=== PATIENT | male | born 1950 | race Caucasian/White ===

== ENCOUNTER → 2019-02-24 | Outpatient (CLI) | payer BC, OTHER ==
[~2019-02-24] MED LIST: B-COMPLEX PLUS1 EACH PO; BACTRIM DS TAB1 EACH PO; C-1000 WITH R1000 MG PO; FISH OIL 1,2001 EAC4 PO; LAMICTAL PO; LAMOTRIGINE200 MG PO; LEVAQUIN 500 M500 M2 PO; MULTIPLE VITAM1 EAC3 PO; MULTIVITAMINS PO; NORCO 5-325 TA1 EACH PO; PERCOCET 7.5-31 EACH PO; POTASSIUM20; POTASSIUM99 M1 PO; SYNTHROID PO; SYNTHROID50 MCG PO; TAMSULOSIN HCL0.4 M1 PO; TAMSULOSIN HCL0.4 MG PO; TORADOL 10 MG T10 MG PO; VITAMIN B; VITAMIN C100 M1 PO; VITAMIN E400 UNI2 PO
--- NOTE | 2019-02-24 12:06 | 2DMMODE ---
[facility] [address] [place] [address] 2 D/M-MODE ECHOCARDIOGRAM Name: FRANCO ALEJANDRA Room #: [facility]#: [id number] ������������� Admission: 02/24/19 ������������� Attend Phys: Charles Mackey Discharge: ��� ������������� ��� Date of : 52 Date of Service: 02/24/19 1206 �� Report #: [id number] �������� ��������������������������������������������[id number] THIS REPORT FOR: //name// APPROVED REPORT Study performed: 02/24/2019 11:03:52 EXAM: Comprehensive 2D, Doppler, and color-flow Echocardiogram Patient Location: Out-Patient Status: routine BSA: 1.98 HR: 80 bpm BP: 127/69 mmHg Rhythm: NSR Other Information Study Quality: Good Indications PACs. 2D Dimensions RVDd: 39.11 mm IVSd: 11.94 (7-11mm) LVDd: 47.16 mm PWd: 9.23 (7-11mm) Ascending Ao: 31.98 (22-36mm) LVDs: 29.36 (25-40mm) Aortic Root: 34.76 mm Volumes Left Atrial Volume (Systole) Single Plane 4CH: 48.41 mL Single Plane 2CH: 43.30 mL Aortic Valve AoV Peak Julio C.: 1.27 m/s AO Peak Gr.: 6.45 mmHg LVOT Max P.44 mmHg LVOT Max V: 1.17 m/s Mitral Valve E/A Ratio: 0.9 MV Decel. Time: 297.86 ms MV E Max Julio C.: 0.64 m/s MV A Julio C.: 0.75 m/s MV PHT: 86.38 ms [facility] [address] [place] [address] 2 D/M-MODE ECHOCARDIOGRAM Name: FRANCO ALEJANDRA II Room #: [facility]#: [id number] ������������� Admission: 02/24/19 ������������� Attend Phys: Charles Mackey Discharge: ��� ������������� ��� Date of : 52 Date of Service: 02/24/19 1206 �� Report #: [id number] �������� ��������������������������������������������[id number] IVRT: 110.73 ms Pulmonary Valve PV Peak Julio C.: 1.02 m/s PV Peak Gr.: 4.15 mmHg Pulmonary Vein P Vein S: 0.56 m/s P Vein D: 0.30 m/s P Vein S/D Ratio: 1.87 Tricuspid Valve TR Peak Julio C.: 2.35 m/s RAP Estimate: 25.00 mmHg TR Peak Gr.: 22.03 mmHg Left Ventricle The left ventricle is normal size. There is normal LV segmental wall motion. Mild basal septal hypertrophy is present. Left ventricular systolic function is normal. LVEF is 60-65%. Mild diastolic dysfunction is present (impaired relaxation pattern). Right Ventricle The right ventricle is normal size. The right ventricular systolic function is normal. Atria The left atrium size is normal. The right atrium size is normal. Aortic Valve The aortic valve is normal in structure. No aortic regurgitation is present. There is no aortic valvular stenosis. Mitral Valve The mitral valve is normal in structure. There is no mitral valve regurgitation noted. Tricuspid Valve The tricuspid valve is normal in structure. Estimated PAP 27mmHg Pulmonic Valve The pulmonary valve is normal in structure. Trace pulmonic regurgitation. Trace pulmonic regurgitation. Great Vessels The ascending aorta is normal in size. [facility] [employer] [place] [address] 2 D/M-MODE ECHOCARDIOGRAM Name: FRANCO ALEJANDRA [facility] [id number] ������������� Admission: 02/24/19 ������������� Attend Phys: Charles Mackey Discharge: ��� ������������� ��� Date of : 52 Date of Service: 02/24/191205 �� Report #: [id number] �������� ��������������������������������������������[id number] Pericardium There is no pericardial effusion. <Conclusion> Left ventricular systolic function is normal. There is normal LV segmental wall motion. LVEF is 60-65%. Mild diastolic dysfunction The aortic valve is normal in structure. No aortic regurgitation or stenosis The mitral valve is normal in structure. No mitral valve regurgitation. The tricuspid valve is normal in structure. Estimated pulmonary artery pressure of 27mmHg There is no pericardial effusion. ��������������������������������������������� <ELECTRONICALLY SIGNED> ���������������������������������������� By: Ashu Piper MD, [facility] ��������������������������������������������� 02/24/191205 1206 05 Ashu Piper MD, FACC /INF
== END ==
LOC: NUC 08:02
DX: I49.1 Atrial premature depolarization (principal); R06.00 Dyspnea, unspecified; E78.5 Hyperlipidemia, unspecified; E11.9 Type 2 diabetes mellitus without complications

== ENCOUNTER 2019-11-04 06:32 | Observation (INO) | payer OTHER ==
[~2019-11-04] VITALS: Ht 165.1 cm; Wt 82.6 kg
[~2019-11-04 06:32] MED LIST changes: +LAMICTAL25 MG PO; -LAMOTRIGINE200 MG PO; -SYNTHROID50 MCG PO; +SYNTHROID75 MCG PO
[2019-11-04 07:15] VITALS: BP 111/55
[2019-11-04 07:25] LABS: ABSOLUTE NEUTROPHILS 5.8 thou/uL (1.4-8.2); BASOPHILS 0.5 % (0.0-2.0); EOSINOPHILS 0.4 % (0.0-3.0); HEMATOCRIT 47.3 % (42.0-52.0); HEMOGLOBIN 15.7 gm/dL (14.0-18.0); LYMPHOCYTES 11.7 % (24.0-44.0); MCH 29.4 pg (26.0-34.0); MCHC 33.2 g/dL (28.0-37.0); MCV 88.5 fL (80.0-100.0); MONOCYTES 10.4 % (1.0-8.0); PLATELET COUNT 244 thou/uL (150-400); RBC 5.34 mil/uL (4.50-6.00); RDW 13.7 % (10.5-14.5); WBC 7.6 thou/uL (4.0-11.0)
[2019-11-04] MEDS ORDERED: JARDIANCE10 MG PO (07:28)
[2019-11-04] MEDS ORDERED: ALPHAGAN P5 ML OPHTHALMIC (07:28)
[2019-11-04] MEDS ORDERED: NEURONTIN600 MG PO (07:29)
[2019-11-04 07:30] LABS: CALCIUM 9.3 mg/dL (8.5-10.1); CREATININE 0.8 mg/dL (0.7-1.3); POTASSIUM 4.1 mmol/L (3.5-5.1)
[2019-11-04] MEDS ORDERED: PRILOSEC OTC20 MG PO (07:30)
[2019-11-04] MEDS ORDERED: MOBIC15 MG PO (07:30)
[2019-11-04] MEDS ORDERED: METFORMIN HCL500 M1 PO (07:30)
[2019-11-04] MEDS ORDERED: VITAMIN B-1100 M2 PO (07:31)
[2019-11-04] MEDS ORDERED: ZOCOR 20 MG TAB20 M1 PO (07:31)
[2019-11-04] MEDS ORDERED: THERA-M1 EAC1 PO (07:31)
[2019-11-04 07:36] LABS: ALBUMIN 3.7 g/dL (3.4-5.0); TOTAL BILIRUBIN 0.5 mg/dL (<0.1-1.0); TOTAL PROTEIN 6.8 g/dL (6.4-8.2)
[2019-11-04 08:13] LABS: PROTIME 10.7 Seconds (9.3-11.4)
[2019-11-04 12:50] VITALS: BP 130/77
[2019-11-04] MEDS ORDERED: METFORMIN HCL500 MG PO (14:58)
[2019-11-04 16:40] VITALS: BP 108/54
[2019-11-04 19:58] VITALS: BP 116/64
[2019-11-05] VITALS: BP 152/64
[2019-11-05 04:45] VITALS: BP 124/65
[2019-11-05 08:10] VITALS: BP 118/67
[2019-11-05] MEDS ORDERED: DILT-XR120 MG PO ×2 (08:35→08:54)
[2019-11-05 10:32] VITALS: BP 118/67
[2019-11-05 11:30] VITALS: BP 127/79
--- NOTE | 2019-11-06 11:06 | P ---
[facility] [place] [address] PROCEDURE REPORT Name: FRANCO ALEJANDRA Room #: 208-P [facility] Jayden M.R.#: [id number] Admission: 11/04/19 Attend Phys: Charles Mackey MD Discharge: 11/05/19 Date of : 52 Report #: [id number] THIS REPORT FOR: cc: Juhi Groves MD, Lisa A. MD Couchonnal, Luis F. MD ~ CC: Juhi Mackey SUPRAVENTRICULAR TACHYCARDIA ABLATION PREOPERATIVE DIAGNOSIS: Supraventricular tachycardia. POSTOPERATIVE DIAGNOSIS: Atrial tachycardia arising from the coronary sinus ostium. HISTORY: The patient is a 69-year-old male with history of diabetes as well as symptomatic premature atrial contractions. He is typically in sinus rhythm with bigeminal PACs. He is here for EP study and ablation. PROCEDURES PERFORMED: 1. SVT ablation, CPT code 20284. 2. EP with left atrial pacing and recording, CPT code 69226. 3. Program stimulation pacing after IV drug infusion, CPT code 93003. 4. 3D mapping, CPT code 57608. ANESTHESIA: The patient underwent MAC anesthesia with no anesthesia related complications. DESCRIPTION OF PROCEDURE: The patient underwent informed consent. We discussed the details of the procedure including the risks, which include but not limited to bleeding, vascular damage, stroke, NV as well as damage to the kalispel conduction system requiring permanent pacemaker. He understood these risks and is willing to proceed. The patient was brought to the EP laboratory in a fasting and sedated state and prepped and draped in a sterile fashion. Of note, the patient was not in his typical atrial bigeminy. He was in sinus rhythm. I then obtained access to the right femoral vein x 4, placing an 8, two 6 and a 7-Welsh short sheath using the modified Seldinger technique. Next, under fluoroscopy, I placed 3 quadripolar catheters at the HRA, His and RV positions and a decapolar catheter into the coronary sinus for left atrial pacing and recording. Next, a basic EP study was performed. At baseline, the patient was in sinus rhythm with sinus cycle length of 730 milliseconds, NC interval 165 milliseconds, QRS duration 80 milliseconds, QT interval 360 milliseconds, AH interval 95 milliseconds, and HV interval of 40 milliseconds. Atrial burst pacing was performed and AV block was noted at 330 milliseconds. Atrial ERP was noted at 250 milliseconds at a [address] [facility] [address] [address] PROCEDURE REPORT Name: FRANCO ALEJANDRA Room #: 208-P [facility].Dinorah#: [id number] Admission: 11/04/19 Attend Phys: Charles Mackey MD Discharge: 11/05/19 Date of : 52 Report #: [id number] cycle length. VA block was noted at 410 milliseconds and VA ERP was noted at 220 milliseconds at a [address] cycle length. VA conduction was both midline and decremental. There was no evidence of PACs or SVT. Isoproterenol was initiated at 2 mcg per minute and I performed aggressive pacing maneuvers and again there was no SVT nor any PACs. I then continued testing at 5 mcg per minute and then went all the way up to 10 mcg per minute, which increased his resting heart rate to about 150 beats per minute. I then came off the isoproterenol and continued testing. After approximately an hour of testing, the patient went into SVT after giving single atrial extrastimuli at 270 milliseconds at a [address] cycle length. The SVT demonstrated tachycardia cycle length of 340 milliseconds with a septal VA time of 170 milliseconds. The P-wave morphology was negative in leads II, III, aVF. The earliest intracardiac signal was at CS 9, 10, which appeared to be approximately 10-20 milliseconds preceding the surface P-wave. I attempted to entrain this tachycardia multiple times, which was unsuccessful, but it did appear that I dissociated the A from the V ruling out an accessory pathway. Induction of this tachycardia was not easy. I went back on one of isoproterenol and would come off of this and we could induce tachycardia for anywhere from 5 seconds to a minute. Interestingly, when I paced the CS 9, 10, the P-wave morphology looked identical to the SVT morphology. At this point, I decided to open up a PentaRay and performed a 3D map of the right atrium and an activation map of the tachycardia. This clearly was arising right at the base of the coronary sinus ostium. It was later within the CS and it was obviously later everywhere else in the right atrium. Therefore, I went up with an ablation catheter and placed the ablation catheter at the site of earliest signals. I tried to induce with the ablation catheter here, but this was unsuccessful. Therefore, I empirically performed 8 ablation lesions throughout this region at 35 grijalva. Each ablation was of 30 seconds duration. The electrograms in this area were consistent with a coronary sinus sized electrograms. Post-ablation testing was then performed. Post-ablation, the patient was started back on isoproterenol 1 mcg per minute. I performed aggressive atrial burst pacing as well as single atrial extrastimuli and the patient had no further premature atrial contractions nor any further runs of the atrial tachycardia. We tested for about 20-30 minutes and the procedure was concluded. Catheters and sheaths were pulled. Hemostasis obtained and the patient awoke neurologically and hemodynamically intact with no complications and no significant bleeding. Post-ablation, the patient was in sinus rhythm with sinus cycle length of 620 milliseconds, NC interval 140 milliseconds, QRS duration 80 milliseconds, QT interval 325 milliseconds, AH interval 95 milliseconds, and HV interval 40 milliseconds. CONCLUSIONS: 1. Successful ablation of a focal atrial tachycardia arising from the base of the coronary sinus ostium. 2. Normal SA jany function. [facility] [address] [place] [address] PROCEDURE REPORT Name: FRANCO ALEJANDRA Room #: 208-P [facility] Jayden Darnell#: [id number] Admission: 11/04/19 Attend Phys: Charles Mackey MD Discharge: 11/05/19 Date of : 52 Report #: [id number] 3. Normal AV jany function. 4. Normal His-Purkinje function. 5. No other inducible arrhythmias on or off isoproterenol infusion. <ELECTRONICALLY SIGNED> By: Charles Mackey MD 11/06/19 1106 1252 2218 Charles Mackey MD /nt
== END 2019-11-05 14:15 | disposition home or self-care (01) ==
LOC: CATH 06:32 → 2N 13:08 → CATH 14:26 → ENTRNSPT 11-05 13:21 → EDTRNSPTSTS 11-05 13:50 → 2N 11-05 14:15
PROVIDERS: ADMIT Internal Medicine Cardiovascular Disease
DX: I47.1 Supraventricular tachycardia (principal)
CPT/HCPCS: 70005

== ENCOUNTER → 2020-02-09 | Outpatient (CLI) | payer OTHER ==
[~2020-02-09] MED LIST changes: +ALPHAGAN P5 ML OPHTHALMIC; +DILT-XR120 MG PO; +JARDIANCE10 MG PO; +METFORMIN HCL500 M1 PO; +METFORMIN HCL500 MG PO; +MOBIC15 MG PO; +NEURONTIN600 MG PO; +PRILOSEC OTC20 MG PO; +THERA-M1 EAC1 PO; +VITAMIN B-1100 M2 PO; +ZOCOR 20 MG TAB20 M1 PO
== END ==
LOC: SJCVC 13:24
PROVIDERS: ATTEND Internal Medicine Cardiovascular Disease
DX: I49.1 Atrial premature depolarization (principal); I47.1 Supraventricular tachycardia

== ENCOUNTER → 2020-03-17 | Outpatient (CLI) | payer OTHER | LOC: SJCVC 13:58 | PROVIDERS: ATTEND Internal Medicine Cardiovascular Disease | DX: I49.1 Atrial premature depolarization (principal); I47.1 Supraventricular tachycardia; Z79.899 Other long term (current) drug therapy ==

== ENCOUNTER → 2020-06-15 | Outpatient (CLI) | payer OTHER | LOC: SJCVC 14:00 | PROVIDERS: ATTEND Internal Medicine Cardiovascular Disease | DX: I47.1 Supraventricular tachycardia (principal) ==

== ENCOUNTER → 2020-12-14 | Outpatient (CLI) | payer OTHER | LOC: SJCVC 15:01 | PROVIDERS: ATTEND Internal Medicine Cardiovascular Disease | DX: I47.1 Supraventricular tachycardia (principal); R06.00 Dyspnea, unspecified; E11.9 Type 2 diabetes mellitus without complications; E03.9 Hypothyroidism, unspecified; N40.0 Benign prostatic hyperplasia without lower urinary tract symptoms; G47.33 Obstructive sleep apnea (adult) (pediatric); E66.9 Obesity, unspecified; E78.5 Hyperlipidemia, unspecified; Z98.890 Other specified postprocedural states; Z79.82 Long term (current) use of aspirin; Z79.84 Long term (current) use of oral hypoglycemic drugs; Z79.899 Other long term (current) drug therapy ==

== ENCOUNTER → 2021-01-11 | Outpatient (CLI) | payer OTHER | LOC: CAT 13:57 | PROVIDERS: ATTEND Internal Medicine Cardiovascular Disease | DX: Z13.6 Encounter for screening for cardiovascular disorders (principal); E78.00 Pure hypercholesterolemia, unspecified; I25.10 Atherosclerotic heart disease of native coronary artery without angina pectoris ==

== ENCOUNTER → 2021-06-14 | Outpatient (CLI) | payer OTHER | LOC: SJCVC 14:30 | PROVIDERS: ATTEND Internal Medicine Cardiovascular Disease | DX: I45.10 Unspecified right bundle-branch block (principal); I49.3 Ventricular premature depolarization; R93.1 Abnormal findings on diagnostic imaging of heart and coronary circulation; I47.1 Supraventricular tachycardia; I49.1 Atrial premature depolarization; Z79.82 Long term (current) use of aspirin; Z79.84 Long term (current) use of oral hypoglycemic drugs; Z79.899 Other long term (current) drug therapy; Z72.89 Other problems related to lifestyle ==